=== PATIENT | female | born 1930 | race Caucasian/White ===

== ENCOUNTER 2017-10-22 10:39 | Outpatient (CLI) | payer MEDICARE, BC ==
[~2017-10-22 10:39] MED LIST: ASCO500W7 PO; ASPI-920 PO; ATOR10TA87 PO; CHOL2000 PO; CLOB60CR4 TOP; GLUC1TAB21 PO; LEVO75TA PO; MULT-1085 PO; SOLI5TAB2 PO; TURM500C7 PO; [UNRECOGNIZED DRUG - CODE] PO
[2017-10-22 11:00] LABS: TOTAL HEMOGLOBIN 15.8 G/dl (12.0-16.0)
== END 2017-10-22 23:59 | disposition home or self-care (01) ==
LOC: RT 10:39
PROVIDERS: ATTEND Internal Medicine
DX: J44.9 Chronic obstructive pulmonary disease, unspecified (principal); Z79.82 Long term (current) use of aspirin; Z87.891 Personal history of nicotine dependence
CPT/HCPCS: 85018; 94010; 94727; 94729; J7030